=== PATIENT | female | born 1960 | race Caucasian/White ===

== ENCOUNTER → 2017-08-27 | Outpatient (CLI) | payer OTHER ==
--- NOTE | 2017-08-27 13:42 | CT ---
EXAMINATION TYPE: CT ChestAbdPelvis w con DATE OF EXAM: 08/27/2017 COMPARISON: HISTORY: Follow up renal cancer CT DLP: 1870.5 mGycm Automated exposure control for dose reduction was used. CONTRAST: CT scan of the chest, abdomen and pelvis is performed with Oral Contrast and with IV Contrast, patien t injected with 80 mL of Isovue 300. FINDINGS: LUNGS: The lungs are grossly clear, there is no concerning parenchymal mass or nodule identified. T here is no pleural effusion or pneumothorax seen. The tracheobronchial tree is patent. MEDIASTINUM: There are no greater than 1 cm hilar or mediastinal lymph nodes. No pericardial effusi on is seen. AORTA: No significant abnormality is seen. OTHER: No additional significant abnormality is seen. LIVER/GB: Patient is post cholecystectomy. Liver is stable. PANCREAS: No significant abnormality is seen. SPLEEN: No significant abnormality is seen. ADRENALS: Right adrenal gland is not seen. Left adrenal gland is stable KIDNEYS: Patient is post right nephrectomy. Multiple surgical clips are present. REPRODUCTIVE ORGANS: No gross abnormality seen. BOWEL: Stable. FREE AIR: No Free Air visible. ASCITES: None seen. RETROPERITONEAL ADENOPATHY: No retroperitoneal adenopathy is seen. LYMPH NODES: No greater than 1 cm abdominal or pelvic lymph nodes are appreciated. URINARY BLADDER: No significant abnormality is seen. PELVIC ADENOPATHY: None visualized. OSSEOUS STRUCTURES: No significant abnormality is seen. IMPRESSION: No significant interval change. No evident recurrent disease. Postop changes.
== END | disposition home or self-care (01) ==
LOC: RADCTMAIN 10:24
PROVIDERS: ATTEND Internal Medicine Hematology & Oncology
DX: C64.9 Malignant neoplasm of unspecified kidney, except renal pelvis (principal); Z98.890 Other specified postprocedural states
CPT/HCPCS: 82565; 84520; 71260; 74177; 36415; Q9967

== ENCOUNTER → 2017-10-10 | Outpatient (CLI) | payer OTHER ==
--- NOTE | 2017-10-15 11:30 | MM ---
Reason for exam: screening (asymptomatic). Last mammogram was performed 2 years and 8 months ago. History: Patient history of other cancer. Physical Findings: A clinical breast exam by your physician is recommended on an annual basis and results should be correlated with mammographic findings. MG Screening Mammo w CAD Bilateral CC and MLO view(s) were taken. Prior study comparison: February 22, 2015, bilateral MG screening mammo w CAD. The breast tissue is almost entirely fat. Bilateral axillary tail lymph nodes. No significant changes when compared with prior studies. ASSESSMENT: Negative, BI-RAD 1 RECOMMENDATION: Routine screening mammogram of both breasts in 1 year.
== END | disposition home or self-care (01) ==
LOC: RADMAMWWP 14:45
PROVIDERS: ATTEND Family Medicine
DX: Z12.31 Encounter for screening mammogram for malignant neoplasm of breast (principal)
CPT/HCPCS: 77067

== ENCOUNTER → 2020-09-29 | Outpatient (CLI) | payer OTHER ==
[2020-09-29 20:23] LABS: Cyclic Citrull Pep IgG Unit <0.5 U/mL; Cyclic Citrullinated Pep IgG NEGATIVE (NEGATIVE)
[2020-09-29 22:12] LABS: C Reactive Protein 0.6 mg/dL (0.0-0.8)
== END | disposition home or self-care (01) ==
LOC: LABWHC1 14:29
PROVIDERS: ATTEND Family Medicine
DX: M25.519 Pain in unspecified shoulder (principal)
CPT/HCPCS: 36415; 85652; 86038; 86140; 86200; 86431

== ENCOUNTER → 2021-08-08 | Outpatient (CLI) | payer OTHER ==
--- NOTE | 2021-08-10 07:30 | MM ---
Reason for Exam: Screening (asymptomatic). Last mammogram was performed 3 year(s) and 10 month(s) ago. Patient History: Menarche at age 12. First Full-Term at age 21. Postmenopausal. Other cancer. Risk Values: Annamaria 5 year model risk: 1.1%. NCI Lifetime model risk: 6.1%. Prior Study Comparison: 02/22/2015 Bilateral Screening Mammogram, [facility]. 10/10/2017 Bilateral Screening Mammogram, [facility]. Tissue Density: There are scattered fibroglandular densities. Findings: Analyzed By CAD. There is no suspicious group of microcalcifications or new suspicious mass in either breast. Stable nodular density left breast. Overall Assessment: Benign, BI-RAD 2 Management: Screening Mammogram of both breasts in 1 year. A clinical breast exam by your physician is recommended on an annual basis and results should be correlated with mammographic findings. Electronically signed and approved by: Ion Melendrez M.D. Radiologis
== END | disposition home or self-care (01) ==
LOC: RADMAMWWP 16:44
PROVIDERS: ATTEND Family Medicine
DX: Z12.31 Encounter for screening mammogram for malignant neoplasm of breast (principal)
CPT/HCPCS: 77067

== ENCOUNTER → 2022-04-26 | Outpatient (CLI) | payer OTHER ==
--- NOTE | 2022-04-26 09:41 | CT ---
EXAMINATION TYPE: CT chest wo con DATE OF EXAM: 04/26/2022 COMPARISON: Most recent CT October 03, 2021 and older studies HISTORY: Renal cell CA CT DLP: 407 mGycm. Automated Exposure Control for Dose Reduction was Utilized. TECHNIQUE: CT scan of the thorax is performed without IV contrast. FINDINGS: LUNGS: There is now larger and more solid appearance of the prior visualized 7 mm groundglass nodule which currently measures 12 x 10 mm axial image 27. Findings confirmed on coronal and sagittal image s. No new greater than 5 mm pulmonary nodules. There is no pleural effusion or pneumothorax seen. Th e tracheobronchial tree is patent. MEDIASTINUM: Lack of IV contrast is noted to limit evaluation for mediastinal and especially hilar ad enopathy. There are no definitive minimal greater than 1 cm mediastinal lymph nodes. No cardiomegal y or pericardial effusion is seen. OTHER: Cholecystectomy clips are redemonstrated. Surgical clips right retroperitoneum with nonvisuali zed right adrenal gland and upper portion right kidney is redemonstrated. IMPRESSION: 1. There is now 12 x 10 mm solid nodule at site of prior 7 mm groundglass nodule worrisome for neopla sm. Consider PET/CT follow-up to further evaluate.
== END | disposition home or self-care (01) ==
LOC: RADCTMAIN 08:47
PROVIDERS: ATTEND Internal Medicine Hematology & Oncology
DX: C64.9 Malignant neoplasm of unspecified kidney, except renal pelvis (principal); R91.8 Other nonspecific abnormal finding of lung field
CPT/HCPCS: 71250

== ENCOUNTER → 2022-06-02 | Outpatient (CLI) | payer OTHER ==
--- NOTE | 2022-06-03 13:10 | PE ---
EXAMINATION TYPE: PET CT fusion skull to thigh DATE OF EXAM: 06/02/2022 CLINICAL INDICATION:Female, 61 years old with history of R91.1; TECHNIQUE: Following the intravenous administration of 11.8 mCi of F-18 FDG, whole body images are performed from the skull base to the midthigh. Images are reviewed on the computer in the coronal, a xial, and sagittal planes. Reconstructed rotating images are created on independent workstation and reviewed on the computer. A non-contrast CT is performed in conjunction with the PET scan. Glucose level 104 mg/dL COMPARISON: CT 10/04/2019 03/16/1622, PET/CT None, FINDINGS: Mediastinal SUV mean is 1.7. Hepatic parenchyma SUV mean is 3.0. SKULL BASE AND NECK: No suspicious radiotracer activity. CHEST, MEDIASTINUM, AND HILAR REGION: * Right upper lung 8 x 8 mm pulmonary nodule Max SUV 0.7. * Left lower lobe spares segment somewhat groundglass appearance adjacent exam compared to more rolly d appearance on immediate prior max SUV 0.9 ABDOMEN AND PELVIS: No suspicious radiotracer activity. OSSEOUS STRUCTURES: No suspicious radiotracer activity. OTHER CT: The gallbladder surgically absent. Small hiatal hernia. Few scattered colonic diverticula. Fat-containing umbilical hernia. Heart is mildly enlarged. IMPRESSION: Pulmonary nodules without increased FDG activity measuring up to 8 mm in the right upper lobe and a l eft lower lobe superior segment nodule has more groundglass appearance on today's exam compared to im mediate prior where it was more solid. Attention on follow-up CT chest for surveillance. No suspiciou s FDG activity within the exam.
== END | disposition home or self-care (01) ==
LOC: RADPETMAIN 09:47
PROVIDERS: ATTEND Internal Medicine Hematology & Oncology
DX: R91.8 Other nonspecific abnormal finding of lung field (principal)
CPT/HCPCS: 78815; A9552

== ENCOUNTER → 2022-09-07 | Outpatient (CLI) | payer OTHER ==
--- NOTE | 2022-09-07 11:24 | CT ---
EXAMINATION TYPE: CT chest wo con DATE OF EXAM: 09/07/2022 COMPARISON: 04/26/[address] 06/02/2022 HISTORY: 61-year-old female C64.9. Lung nodules, history of renal cell cancer. TECHNIQUE: Contiguous axial scanning of the chest without IV contrast. Coronal/sagittal reconstructio ns performed. CT DLP: 419.7mGycm. Automatic exposure control utilized for a dose reduction. FINDINGS: Heart is normal size without pericardial effusion. Aorta is normal caliber with conventional arch vessel branching anatomy. 7 mm poorly defined nodule superior segment left lower lobe remains unchanged from 06/02/2022. 2 adjacent nodules right upper lobe measuring up to 8 mm also remain unchanged from 06/02/2022. No new or enlarging nodules are seen. There is a tiny hiatal hernia. Visualized upper abdomen otherwise shows surgical material in the righ t nephrectomy bed on the partially visualized. Cholecystectomy clips. Bones: Mild degenerative disc disease lower thoracic spine. IMPRESSION: 1. The 2 adjacent nodules measuring up to 8 mm in the right upper lobe and the poorly defined 7 mm no dule superior segment left lower lobe remain unchanged from 06/02/2022. 2. No new suspicious nodules are seen. 3. Partially visualized right nephrectomy bed.
== END | disposition home or self-care (01) ==
LOC: RADCTMAIN 08:55
PROVIDERS: ATTEND Internal Medicine Hematology & Oncology
DX: C64.9 Malignant neoplasm of unspecified kidney, except renal pelvis (principal); C44.91 Basal cell carcinoma of skin, unspecified; M25.529 Pain in unspecified elbow; R91.8 Other nonspecific abnormal finding of lung field; Z85.528 Personal history of other malignant neoplasm of kidney; Z90.5 Acquired absence of kidney
CPT/HCPCS: 71250

== ENCOUNTER → 2022-10-25 | Outpatient (CLI) | payer OTHER ==
--- NOTE | 2022-10-26 22:54 | MM ---
Reason for Exam: Screening (asymptomatic). Last mammogram was performed 1 year(s) and 3 month(s) ago. Patient History: Menarche at age 12. First Full-Term at age 21. Postmenopausal. Other cancer. Risk Values: Annamaria 5 year model risk: 1.1%. NCI Lifetime model risk: 6.0%. Prior Study Comparison: 02/22/2015 Bilateral Screening Mammogram, [facility]. 10/10/2017 Bilateral Screening Mammogram, [facility]. 08/08/2021 Bilateral MG screening mammo w CAD, [facility]. Tissue Density: The breast tissue is almost entirely fat. Findings: Analyzed By CAD. Chronic bilateral nodularity. There is no suspicious group of microcalcifications or new suspicious mass in either breast. Overall Assessment: Benign, BI-RAD 2 Management: Screening Mammogram of both breasts in 1 year. . Patient should continue monthly self-breast exams. A clinical breast exam by your physician is recommended on an annual basis. This exam should not preclude additional follow-up of suspicious palpable abnormalities. Note on Annamaria scores and lifetime risk: 1. A Annamaria score greater than 3% is considered moderate risk. If this is the case, consider specialist referral to assess eligibility for a risk reducing agent. 2. If overall lifetime risk for the development of breast cancer is 20% or higher, the patient may qualify for future screening with alternating mammogram and breast MRI. Electronically signed and approved by: Shelia Puga M.D. Radiologist
== END | disposition home or self-care (01) ==
LOC: RADMAMWWP 13:39
PROVIDERS: ATTEND Family Medicine
DX: Z12.31 Encounter for screening mammogram for malignant neoplasm of breast (principal); Z78.0 Asymptomatic menopausal state
CPT/HCPCS: 77067

== ENCOUNTER → 2023-03-27 | Outpatient (CLI) | payer OTHER ==
--- NOTE | 2023-03-27 10:41 | CT ---
EXAMINATION TYPE: CT chest wo con DATE OF EXAM: 03/27/2023 COMPARISON: 09/07/2022. HISTORY: Soccer carcinoma. CT DLP: 588 mGycm. Automated Exposure Control for Dose Reduction was Utilized. TECHNIQUE: CT scan of the thorax is performed without IV contrast. FINDINGS: Mediastinum and Lianne: There is no axillary, mediastinal or hilar lymphadenopathy. Pleural and Pericardial spaces: There are no pleural or pericardial effusions. Upper Abdomen: The right kidney appears surgically absent. The visualized upper abdomen otherwise trupti ears unremarkable. Cardiovascular: The thoracic aorta is normal in size. Lung Parenchyma and Airways: 4 mm nodule in the right upper lobe on series 4 image 15 remains unchang ed. Cluster of nodules in the right middle lobe measuring approximately 1.2 x 0.8 cm in diameter in t he right middle lobe on series 4 image 27 is unchanged. Bones: No fracture or aggressive osseous lesion. IMPRESSION: 1. No acute abnormality in the chest. Follow-up recommendations for incidental pulmonary nodules are per [employer] or [employer].
== END | disposition home or self-care (01) ==
LOC: RADCTMAIN 10:03
PROVIDERS: ATTEND Internal Medicine Hematology & Oncology
DX: C44.90 Unspecified malignant neoplasm of skin, unspecified (principal); C44.91 Basal cell carcinoma of skin, unspecified; R91.1 Solitary pulmonary nodule; M25.529 Pain in unspecified elbow
CPT/HCPCS: 71250

== ENCOUNTER → 2024-02-20 | Outpatient (CLI) | payer OTHER ==
--- NOTE | 2024-02-20 15:13 | MM ---
Reason for Exam: Screening (asymptomatic). Last mammogram was performed 1 year(s) and 4 month(s) ago. Patient History: Menarche at age 12. First Full-Term at age 21. Postmenopausal. Other cancer. Risk Values: Annamaria 5 year model risk: 1.2%. NCI Lifetime model risk: 5.7%. Prior Study Comparison: 10/10/2017 Bilateral Screening Mammogram, [facility]. 08/08/2021 Bilateral MG screening mammo w CAD, [facility]. 10/25/2022 Bilateral MG screening mammo w CAD, [facility]. Tissue Density: The breasts are almost entirely fatty. Findings: Analyzed By CAD. Right breast: There is no suspicious group of microcalcifications or new suspicious mass. Left breast: There is no suspicious group of microcalcifications or new suspicious mass. Overall Assessment: Negative, BI-RAD 1 Management: Screening Mammogram of both breasts in [address] [facility] will attempt to contact patient to return for supplemental views and ultrasound if indicated. Patient should continue monthly self-breast exams. A clinical breast exam by your physician is recommended on an annual basis. This exam should not preclude additional follow-up of suspicious palpable abnormalities. Note on Annamaria scores and lifetime risk: 1. A Annamaria score greater than 3% is considered moderate risk. If this is the case, consider specialist referral to assess eligibility for a risk reducing agent. 2. If overall lifetime risk for the development of breast cancer is 20% or higher, the patient may qualify for future screening with alternating mammogram and breast MRI. [facility], , 02/20/2024 3:10 PM. Electronically signed and approved by: John Cuba DO
== END | disposition home or self-care (01) ==
LOC: RADMAMWWP 14:37
PROVIDERS: ATTEND Family Medicine
DX: Z12.31 Encounter for screening mammogram for malignant neoplasm of breast (principal); Z78.0 Asymptomatic menopausal state
CPT/HCPCS: 77067

== ENCOUNTER 2024-04-23 13:13 | Day surgery (SDC) | payer OTHER ==
[2024-04-22 08:42] VITALS: BMI 41.8
[~2024-04-23 13:13] MED LIST: HYDROmorphone 0.5 MG/0.5 ML SYRINGE IVP PRN; LACTATED RINGERS 1,000 ML IV SCH; LIDOCAINE 1% (10MG/ML) FOR IV START INTRADERMA PRN; MIDAZOLAM 2 MG/2 ML VIAL IV PRN; fentaNYL (PF) 50 MCG/ML 2 ML AMP IVP PRN
[2024-04-23] MEDS: IV FLUID CONTINUATION 1,000 ML IV ONE (14:01)
[2024-04-23] MEDS: DEXAMETHASONE SOD PHOSPHATE 4 MG/ML 1 ML VIAL IV ONE (14:03)
[2024-04-23] MEDS: LACTATED RINGERS 1,000 ML IV SCH (14:03)
[2024-04-23] MEDS: ONDANSETRON 4 MG/2 ML VIAL IVP ONE (14:03)
[2024-04-23] MEDS ORDERED: NEOSTIGMINE 1 MG/ML 10 ML VIAL ONE (14:48)
[2024-04-23] MEDS ORDERED: SUCCINYLCHOLINE CHLORIDE 200 MG/10 ML VIAL IV ONE (14:48)
[2024-04-23] MEDS ORDERED: ROCURONIUM 10 MG/ML (5 ML VIAL) IV ONE (14:48)
[2024-04-23] MEDS ORDERED: GLYCOPYRROLATE 0.2 MG/ML 2 ML VIAL ONE (14:48)
[2024-04-23] MEDS ORDERED: LIDOCAINE 1% INJ 10MG/ML (20 ML MDV) ONE (14:48)
[2024-04-23] MEDS ORDERED: PROPOFOL 10 MG/ML 20 ML VIAL IV ONE (14:48)
[2024-04-23] MEDS ORDERED: fentaNYL (PF) 50 MCG/ML 2 ML AMP ONE (14:48)
[2024-04-23 15:30] VITALS: TEMP 96.9
[2024-04-23 15:57] VITALS: RESP 16
[2024-04-23 16:13] VITALS: BP 134/77; PULSE 61
--- NOTE | 2024-04-23 16:46 | P.PCN ---
Date of Procedure: 04/23/24 Preoperative Diagnosis: Left hilar mass Postoperative Diagnosis: Left hilar mass, measuring 29 mm based on EBUS examination Procedure(s) Performed: Endobronchial ultrasound Transbronchial needle aspirate of the left hilar mass Anesthesia: DAVIDA Surgeon: Catalina Pires Estimated Blood Loss (ml): 0 Pathology: other Condition: stable Disposition: same day Operative Findings: Procedure was done in the endoscopy suite. A consent was obtained. Timeout was done. Following that, the patient was intubated and placed on mechanical ventilator. Intubation process was done by anesthesia without any complication the patient was given a #8 orotracheal tube After establishing an adequate oxygenation and ventilation, the flexible bronchoscope was introduced and a complete airway examination was done. Airway examination was essentially within normal limits. Visualized airways include the distal trachea, bilateral mainstem bronchi, right upper lobe bronchus, bronchus intermedius, right middle right lower lobe bronchus and the various 10 segments on the right. All of those were within normal limits. Examination of the left side include left mainstem bronchus and the left upper lobe bronchus and the left lower lobe bronchus. At the level of the wendy between the left upper and left lower lobe bronchus, the left lower lobe bronchus was anteriorly compressed causing mass effect and narrowing of the origin of the left lower lobe bronchus. The various segments of the left lower lobe and the left upper lobe were visualized. The flexible bronchoscope was removed. Endobronchial ultrasound was inserted. Careful mediastinal lymph node station evaluation was done. Of significance, was a 29 mm left hilar mass/lymph node that was seen using the endobronchial ultrasound. Rest of the mediastinal stations were essentially within normal limits. Using a 22-gauge needle, transbronchial needle aspirate of the left hilar mass was done under EBUS guidance. A total of 5 passes were taken. No complications. After completing the procedure, the endobronchial ultrasound was removed and a flexible bronchoscope was inserted for therapeutic airway suctioning. No evidence of any bleeding. The flexible bronchoscope was removed and the patient was extubated and transferred to recovery in stable condition.
== END 2024-04-23 16:28 | disposition home or self-care (01) ==
LOC: ORWHC2ENDO 13:13
PROVIDERS: ATTEND Internal Medicine Critical Care Medicine
DX: C78.02 Secondary malignant neoplasm of left lung (principal); Z85.528 Personal history of other malignant neoplasm of kidney; K21.9 Gastro-esophageal reflux disease without esophagitis; F41.9 Anxiety disorder, unspecified; F12.90 Cannabis use, unspecified, uncomplicated; Z79.899 Other long term (current) drug therapy; Z85.828 Personal history of other malignant neoplasm of skin; Z87.891 Personal history of nicotine dependence; Z90.49 Acquired absence of other specified parts of digestive tract
CPT/HCPCS: 88305; 88342; 88341; 31633; 31652; J0330; J1100; J2710; J2405; J2003; J3010; J2704; J1596

== ENCOUNTER → 2024-07-21 | Outpatient (CLI) | payer OTHER ==
--- NOTE | 2024-07-21 12:22 | CT ---
EXAMINATION TYPE: CT chest wo con CT DLP: 754 mGycm, Automated exposure control for dose reduction was used. DATE OF EXAM: 07/21/2024 12:11 PM COMPARISON: Chest radiograph 04/07/2024, CT chest 03/30/2024, 03/27/2023, 09/07/2022, PET/CT 06/02/2022 CLINICAL INDICATION:Female, 63 years old with history of C64.9 MALIGNANT NEOPLASM OF UNSP KIDNEY, EXC EPT RE; PHH, lung mass, hx of kidney ca TECHNIQUE: Multiple axial images were obtained through the chest without IV contrast. Lack of IV or o ral contrast limits evaluation of solid and hollow organ viscera. . Coronal and sagittal reformats re viewed. FINDINGS: LUNGS/ PLEURA: No pleural effusion, pneumothorax, focal consolidation. Minimal scattered regions of s ubsegmental atelectasis. Decreased size of right upper lobe perivascular pulmonary nodule measuring up to 6 mm, previously measured 9 mm. Near complete resolution of left lower lobe tree-in-bud nodular opacities. No new or enlarging pulmonary nodule. AIRWAY: Patent and unremarkable.. HEART: Size within normal limits. . No pericardial effusion. No significant coronary artery calcifica tions. MEDIASTINUM: No mediastinal adenopathy. Decreased size of left hilar lymph node now measuring 1.9 cm, previously measured 3.8 cm. VASCULATURE: No aortic aneurysm. MUSCULOSKELETAL: No acute osseous abnormalities SOFT TISSUES/LYMPH NODES: Unremarkable. LOWER NECK: No significant findings. UPPER ABDOMEN: Gallbladder is an right kidney are surgically absent. No suspicious soft tissue within the surgical bed. Small hiatal hernia. IMPRESSION: Positive response to therapy with decreased size of now 1.9 cm left hilar lymph node, previously 3.8 cm. Additionally decreased size of right upper lobe perivascular pulmonary nodule now measuring 6 mm, previously measured 9 mm. Resolution of tree-in-bud nodular opacities within the left lower lobe. No new suspicious pulmonary nodule or mass. [facility], , 07/21/2024 12:20 PM
== END | disposition home or self-care (01) ==
LOC: RADCTMAIN 11:49
PROVIDERS: ATTEND Internal Medicine Hematology & Oncology
DX: C64.9 Malignant neoplasm of unspecified kidney, except renal pelvis (principal); R91.1 Solitary pulmonary nodule; M25.529 Pain in unspecified elbow; R59.0 Localized enlarged lymph nodes; Z71.3 Dietary counseling and surveillance; Z85.528 Personal history of other malignant neoplasm of kidney
CPT/HCPCS: 71250

== ENCOUNTER → 2024-08-31 | Outpatient (CLI) | payer OTHER ==
[2024-08-31 17:07] LABS: African American GFR (CKD) 46 (>60 ml/min/1.73 sqM); Blood Urea Nitrogen 10 mg/dL (7-17); Non-African American GFR(CKD) 40 (>60 ml/min/1.73 sqM)
--- NOTE | 2024-08-31 18:11 | CT ---
EXAMINATION TYPE: CT chest w con CT DLP: 435.4 mGycm, Automated exposure control for dose reduction was used. DATE OF EXAM: 08/31/2024 5:37 PM COMPARISON: Multiple CT chest with most recent 07/21/2024, PET/CT 06/02/2022 CLINICAL INDICATION:Female, 63 years old with history of C64.9 KIDNEY CANCER; PHH, COUGH, WEAKNESS, D IZZINESS, RASH, RENAL CA TECHNIQUE: Multiple axial images were obtained through the chest following the administration of 100 cc of Isovue 300. . Coronal and sagittal reformats reviewed. FINDINGS: LUNGS/ PLEURA: No pleural effusion or pneumothorax. Development of patchy scattered groundglass opaci ties throughout the lungs. Stable right upper lobe perivascular 5.4 mm pulmonary nodule (series 4, im age 22). No new or enlarging pulmonary nodule or mass. AIRWAY: Patent and unremarkable.. HEART: Size within normal limits. . No pericardial effusion. No significant coronary artery calcifica tions. MEDIASTINUM: No mediastinal adenopathy. Marginal decrease size of left hilar lymph node now measuring 1.7 cm, previously measured 1.9 cm. VASCULATURE: No aortic aneurysm. MUSCULOSKELETAL: No acute osseous abnormalities. No aggressive osseous lesion. SOFT TISSUES/LYMPH NODES: Unremarkable. LOWER NECK: No significant findings. UPPER ABDOMEN: Gallbladder and right kidney are surgically absent. No suspicious soft tissue within t he visualized surgical bed. Small hiatal hernia. IMPRESSION: 1. Positive response to therapy with marginal size of now 1.7 cm left hilar lymph node, previously 1 .9 cm. Stable right upper lobe perivascular 6 mm pulmonary nodule. No new or enlarging pulmonary nodu les. 2. Development of scattered groundglass opacities throughout the lungs suggesting a multifocal atypi freddie pneumonia. [facility], , 08/31/2024 6:09 PM
== END | disposition home or self-care (01) ==
LOC: RADCTMAIN 16:03
PROVIDERS: ATTEND Internal Medicine Hematology & Oncology
DX: C64.9 Malignant neoplasm of unspecified kidney, except renal pelvis (principal); R91.8 Other nonspecific abnormal finding of lung field
CPT/HCPCS: 82565; 84520; 71260; 36415; Q9967

== ENCOUNTER → 2024-09-10 | Outpatient (CLI) | payer OTHER ==
--- NOTE | 2024-09-10 10:40 | MR ---
INDICATION: Patient age:Female; 63 years old; Reason for study: C64.9 MALIGNANT NEOPLASM OF UNSP KIDNEY, EXCEPT RE; PHH. COMPARISON: None. TECHNIQUE: Multi planar, multi sequence imaging was performed through the brain. The patient was then given 10 cc of Gadobutrol intravenously and multi planar, T1 fat-saturation images were obtained. FINDINGS: The haro-white junctions, ventricular system, basal cisterns appear unremarkable. Age-appropriate cer ebral parenchymal volume. Diffusion-weighted imaging shows no evidence of restricted diffusion to sug gest acute/subacute infarct. Intracranial arterial flow voids are maintained. Midline structures show no abnormality. No FLAIR signal abnormalities. The susceptibility weighted images do not reveal any evidence for micro-hemorrhage. After administration of gadolinium, no abnormal enhancement is seen. The bone marrow signal is within normal limits. The paranasal sinuses and globes are unremarkable. T race bilateral mastoid effusions with left greater than right. IMPRESSION: No evidence of intracranial mass, acute/subacute infarct, or abnormal enhancement. [facility], , 09/10/2024 10:38 AM
== END | disposition home or self-care (01) ==
LOC: RADMRIMAIN 08:54
PROVIDERS: ATTEND Internal Medicine Hematology & Oncology
DX: C64.9 Malignant neoplasm of unspecified kidney, except renal pelvis (principal)
CPT/HCPCS: 70553; A9585